=== PATIENT | female | born 1980 | race Caucasian/White ===

== ENCOUNTER 2016-06-02 10:31 | Emergency (ER) | payer MEDICAID ==
[~2016-06-02 10:31] MED LIST: ABILIFY2 MG PO; ABILIFY5 M1 PO; ACETAMINOPHEN120 ML PO; ADVIL200 MG PO; ALBUTEROL SULF8.5 G1 IH; ALBUTEROL SULF8.5 G2 IH; ALBUTEROL17 GM INH; ALBUTEROL2.5 MG/3 M INH; AMBIEN10 M1 PO; AMBIEN10 MG PO; AMBIEN5 M1 PO; AMOX TR-K CLV1 EAC4 PO; AMOXICILLIN875 M1 PO; AMOXICILLIN875 MG PO; AMOXIL875 MG PO; ATENOLOL25 M1 PO; ATENOLOL25 MG PO; ATIVAN1 MG PO; AUGMENTIN 875-1 EAC2 PO; AZITHROMYCIN250 M1 PO; BENADRYL25 M3 PO; CYCLOBENZAPRINE10 M1 PO; CYCLOBENZAPRINE5 M1 PO; CYMBALTA60 MG PO; DELTASONE10 MG PO; DELTASONE20 MG PO; DICLOFENAC POTA50 M1 PO; DOXYCYCLINE HY100 M3 PO; EFFEXOR XR75 MG; FLEXERIL 10MG PO; FLEXERIL10 MG PO; GARAMYCIN5 ML OP; GEODON20 MG; HUMALOG KW200 UNIT/1 SC; HYDROCODON-ACE1 EA16 PO; HYDROCODON-ACE1 EA17 PO; HYDROXYZINE HCL25 MG PO; HYDROXYZINE HCL50 MG PO; IBUPROFEN600 MG PO; IBUPROFEN800 M1 PO; INDERAL PO; INH; ISONIAZID300 M1 PO; ISONIAZID300 MG PO; KEFLEX500 M4 PO; LAMICTAL150 M1 PO; LAMICTAL150 MG PO; LAMICTAL25 M1 PO; LANTUS SOL100 UNIT/1 SC; LEXAPRO10 MG; LEXAPRO20 MG PO; LORTAB 7.5/5001 TAB PO; METFORMIN HCL500 M2 PO; MOTRIN600 MG PO; MOTRIN800 MG PO; MUPIROCIN22 G2 TP; NAPROXEN500 M1 PO; NORCO 5-325 TA1 EACH PO; NORCO 5/325 TAB1 TAB PO; NORCO 5/3251 TAB PO; PERCOCET 5-3251 EACH PO; PHENERGAN VC W120 ML PO; PHENERGAN W/CO120 ML PO; POLYTRIM EYE DR10 ML RIGHT EYE; PREDNISONE1 MG PO; PREDNISONE10 M1 PO; PREDNISONE10 MG PO; PREDNISONE20 M1 PO; PREDNISONE20 MG PO; PRILOSEC20 M1 PO; PRILOSEC40 M1 PO; PROAIR HFA8.5 GM INH; PROMETHAZINE-C118 ML PO; PROPRANOLOL HC160 M1 PO; PROPRANOLOL HCL20 M2 PO; PROVENTIL HFA6.7 G1 IH; PROVENTIL HFA6.7 G1 INH; PROVENTIL HFA6.7 GM IH; PROVENTIL17 GM IH; RISPERDAL2 M2 PO; SULFAMETHOXAZO1 EAC5 PO; SUMATRIPTAN SUC50 M1 PO; TAMIFLU75 MG/CAP PO; TENORMIN25 MG PO; TRAZODONE HCL100 MG PO; TRAZODONE HCL150 MG PO; TRAZODONE HCL50 M1 PO; TRILEPTAL150 MG PO; TYLENOL PM EX-1 EACH PO; TYLENOL500 MG PO; VISTARIL25 MG PO; VITAMIN B-6200 MG PO; VITAMIN B-650 M2 PO; XANAX1 M1 PO; ZITHROMAX250 M1 PO; ZITHROMAX250 MG PO; ZITHROMAX250MG Z-PAK PO; ZOFRAN4 M2 PO; [UNRECOGNIZED DRUG - OTHER] PO; [UNRECOGNIZED DRUG - OTHER] PO; [UNRECOGNIZED DRUG - OTHER] TP
[2016-06-02] MEDS ORDERED: NEURONTIN300 M1 PO (10:40)
[2016-06-02] MEDS ORDERED: PREDNISONE20 M1 PO (11:36)
[2016-06-02] MEDS ORDERED: AZITHROMYCIN250 M1 PO (11:36)
[2016-09-18] MEDS ORDERED: DIFLUNISAL500 M1 PO (15:09)
[2016-09-18] MEDS ORDERED: NORCO 5-325 TA1 EACH PO (15:39)
[2016-09-18] MEDS ORDERED: ULTRAM50 M1 PO (15:49)
== END 2016-06-02 11:56 ==
LOC: EDMED 10:31
DX: J44.0 Chronic obstructive pulmonary disease with (acute) lower respiratory infection (principal); J20.9 Acute bronchitis, unspecified; E11.9 Type 2 diabetes mellitus without complications; I10 Essential (primary) hypertension; Z86.11 Personal history of tuberculosis; Z79.51 Long term (current) use of inhaled steroids; Z79.899 Other long term (current) drug therapy

== ENCOUNTER 2016-06-05 12:53 | Emergency (ER) | payer MEDICAID ==
[~2016-06-05 12:53] MED LIST changes: +NEURONTIN300 M1 PO
[2016-06-05] MEDS ORDERED: PERCOCET 5-3251 EACH PO (16:22)
[2016-09-18] MEDS ORDERED: DIFLUNISAL500 M1 PO (15:09)
[2016-09-18] MEDS ORDERED: NORCO 5-325 TA1 EACH PO (15:39)
[2016-09-18] MEDS ORDERED: ULTRAM50 M1 PO (15:49)
== END 2016-06-05 16:28 ==
LOC: EDMED 12:53
DX: S20.211A Contusion of right front wall of thorax, initial encounter (principal); S50.01XA Contusion of right elbow, initial encounter; E11.9 Type 2 diabetes mellitus without complications; J44.9 Chronic obstructive pulmonary disease, unspecified; F17.200 Nicotine dependence, unspecified, uncomplicated; Y04.8XXA Assault by other bodily force, initial encounter; Y92.410 Unspecified street and highway as the place of occurrence of the external cause

== ENCOUNTER 2016-06-13 14:34 | Emergency (ER) | payer MEDICAID ==
[2016-06-13] MEDS ORDERED: ULTRAM50 M1 PO (15:34)
[2016-09-18] MEDS ORDERED: DIFLUNISAL500 M1 PO (15:09)
[2016-09-18] MEDS ORDERED: NORCO 5-325 TA1 EACH PO (15:39)
[2016-09-18] MEDS ORDERED: ULTRAM50 M1 PO (15:49)
== END 2016-06-13 15:48 ==
LOC: EDMED 14:34
DX: R07.81 Pleurodynia (principal); E11.9 Type 2 diabetes mellitus without complications; I10 Essential (primary) hypertension; J44.9 Chronic obstructive pulmonary disease, unspecified; F17.200 Nicotine dependence, unspecified, uncomplicated; Y09 Assault by unspecified means
CPT/HCPCS: J1885

== ENCOUNTER 2016-08-15 13:21 | Emergency (ER) | payer MEDICAID ==
[~2016-08-15 13:21] MED LIST changes: +ULTRAM50 M1 PO
[2016-08-15] MEDS ORDERED: PROMETHAZINE-D118 ML PO (13:36)
[2016-08-15] MEDS ORDERED: TRAMADOL HCL50 M2 PO (15:30)
[2016-09-18] MEDS ORDERED: DIFLUNISAL500 M1 PO (15:09)
[2016-09-18] MEDS ORDERED: NORCO 5-325 TA1 EACH PO (15:39)
[2016-09-18] MEDS ORDERED: ULTRAM50 M1 PO (15:49)
== END 2016-08-15 15:39 ==
LOC: EDMED 13:21
DX: M54.5 Low back pain (principal); R05 Cough; I10 Essential (primary) hypertension; J44.9 Chronic obstructive pulmonary disease, unspecified; Z79.4 Long term (current) use of insulin; Z79.51 Long term (current) use of inhaled steroids; Z79.899 Other long term (current) drug therapy; F17.210 Nicotine dependence, cigarettes, uncomplicated; Y04.0XXA Assault by unarmed brawl or fight, initial encounter; Y07.03 Male partner, perpetrator of maltreatment and neglect; Y92.019 Unspecified place in single-family (private) house as the place of occurrence of the external cause

== ENCOUNTER 2016-08-27 17:37 | Emergency (ER) | payer MEDICAID ==
[~2016-08-27 17:37] MED LIST changes: +PROMETHAZINE-D118 ML PO; +TRAMADOL HCL50 M2 PO
[2016-08-27] MEDS ORDERED: ZANAFLEX4 M2 PO (17:47)
[2016-08-27] MEDS ORDERED: MOBIC7.5 M2 PO (17:47)
[2016-08-27] MEDS ORDERED: BENADRYL25 M3 PO (20:27)
[2016-09-18] MEDS ORDERED: DIFLUNISAL500 M1 PO (15:09)
[2016-09-18] MEDS ORDERED: NORCO 5-325 TA1 EACH PO (15:39)
[2016-09-18] MEDS ORDERED: ULTRAM50 M1 PO (15:49)
== END 2016-08-27 20:22 ==
LOC: EDMED 17:37
DX: R07.0 Pain in throat (principal); F17.210 Nicotine dependence, cigarettes, uncomplicated; K21.9 Gastro-esophageal reflux disease without esophagitis; J44.9 Chronic obstructive pulmonary disease, unspecified
CPT/HCPCS: J1200; J2930; J7030